=== PATIENT | male | born 1940 | race Caucasian/White ===

== ENCOUNTER → 2024-01-05 17:28 | Outpatient (REF) | payer MEDICARE, OTHER, SELFPAY | LOC: RAD 17:28 | PROVIDERS: ATTENDING PHYSICIAN Family Medicine | DX: R60.0 Localized edema (principal) | CPT/HCPCS: 93971 ==

== ENCOUNTER → 2024-03-08 13:54 | Outpatient (REF) | payer MEDICARE, OTHER, SELFPAY | LOC: RAD 13:54 | PROVIDERS: ATTENDING PHYSICIAN Surgery Vascular Surgery | DX: I73.9 Peripheral vascular disease, unspecified (principal) | CPT/HCPCS: 93922; 93925 ==

== ENCOUNTER → 2025-02-07 15:57 | Outpatient (REF) | payer MEDICARE, OTHER, SELFPAY | LOC: RAD 15:57 | PROVIDERS: ATTENDING PHYSICIAN Family Medicine | DX: Z01.818 Encounter for other preprocedural examination (principal); I73.9 Peripheral vascular disease, unspecified; M79.606 Pain in leg, unspecified; M79.661 Pain in right lower leg | CPT/HCPCS: 93970 ==

== ENCOUNTER → 2025-03-16 14:30 | Outpatient (REF) | payer MEDICARE, OTHER, SELFPAY | LOC: RAD 14:30 | PROVIDERS: ATTENDING PHYSICIAN Surgery Vascular Surgery; FAMILY PHYSICIAN Family Medicine | DX: Z01.818 Encounter for other preprocedural examination (principal); I73.9 Peripheral vascular disease, unspecified; M79.606 Pain in leg, unspecified | CPT/HCPCS: 93922; 93925 ==